=== PATIENT | female | born 1975 | race Caucasian/White ===

== ENCOUNTER 2018-04-29 18:00 | Emergency (ER) | payer OTHER ==
[~2018-04-29] VITALS: Ht 157.5 cm; Wt 93.0 kg
[2018-04-29 18:10] VITALS: Ht 157.5 cm; Wt 93.0 kg
[2018-04-29 18:55] LABS: UA SPECIFIC GRAVITY >=1.030 (1.005-1.035); microscopic required? YES; urine erythrocyte 1+ (NEGATIVE)
[2018-04-29 21:16] VITALS: BP 116/83
== END 2018-04-29 21:16 | disposition home or self-care (01) ==
LOC: ED 18:00
PROVIDERS: Emergency Medicine
DX: N39.0 Urinary tract infection, site not specified (principal)
CPT/HCPCS: 87491; 87591